=== PATIENT | male | born 1955 | race Caucasian/White ===

== ENCOUNTER → 2021-10-13 | Outpatient (CLI) | payer SELFPAY ==
--- NOTE | 2021-10-13 10:42 | ECHOD_ITS ---
Reason For Study: ABN EKG Procedure This was a 2D Doppler, Color Flow transthoracic echocardiogram. Exam performed in department. Left Ventricle Normal LV size. Left ventricular systolic function is normal. The estimated ejection fraction is 60 %. Normal diastology for age. No regional wall motion abnormalities noted. Right Ventricle Normal RV size. Normal systolic function. Atria Normal left atrium. Normal right atrium. Mitral Valve Normal mitral valve. Tricuspid Valve Normal tricuspid valve. Aortic Valve Normal aortic valve. Trisinus/trileaflet aortic valve. Pulmonic Valve Normal pulmonic valve. Great Vessels Normal aortic root. The pulmonary artery is normal size. Normal inferior vena cava. Pericardium/Pleural No pericardial effusion. MMode/2D Measurements & Calculations LVIDd: 4.8 cm IVSd: 0.97 cm LVOT diam: 2.0 cm LVIDs: 3.3 cm LVPWd: 1.0 cm LVOT area: 3.0 cm2 RVDd: 3.4 cm FS: 31.8 % Ao root diam: 2.4 cm LAV(MOD-bp): 58.7 ml LVAd ap4: 31.1 cm2 LAV(MOD-bp) Indexed: 27.7 ml/m2 LVLd ap4: 8.2 cm LAV(MOD-sp2): 63.4 ml EDV(MOD-sp4): 101.0 ml LAV(MOD-sp4): 54.6 ml EDV(sp4-el): 99.5 ml LVAs ap4: 17.5 cm2 LVLs ap4: 6.9 cm ESV(MOD-sp4): 40.3 ml ESV(sp4-el): 37.5 ml EF(MOD-sp4): 60.1 % EF(sp4-el): 62.3 % LVAd ap2: 33.8 cm2 SV(MOD-sp4): 60.7 ml SV(MOD-sp2): 68.8 ml LVLd ap2: 8.4 cm EDV(MOD-sp2): 112.9 ml EDV(sp2-el): 114.8 ml LVAs ap2: 18.9 cm2 LVLs ap2: 7.2 cm ESV(MOD-sp2): 44.1 ml ESV(sp2-el): 42.4 ml EF(MOD-sp2): 60.9 % SV(sp4-el): 62.0 ml LA dimension(2D): 4.1 cm LA A4 area: 19.6 cm2 RA A4 area: 14.7 cm2 Time Measurements MV dec time: 0.23 sec Doppler Measurements & Calculations MV E max seamus: 94.2 cm/sec Lat Peak E' Seamus: 15.1 cm/sec Med Peak E' Seamus: 9.3 cm/sec MV A max seamus: 58.8 cm/sec E/E' lat: 6.3 E/E' med: 10.2 MV E/A: 1.6 Ao V2 max: 194.8 cm/sec LV V1 max: 145.3 cm/sec MV dec slope: 408.6 cm/sec2 Ao max P.2 mmHg LV V1 max P.5 mmHg Ao V2 mean: 126.0 cm/sec LV V1 mean P.3 mmHg Ao mean P.6 mmHg LV V1 mean: 96.9 cm/sec Ao V2 VTI: 41.5 cm LV V1 VTI: 31.7 cm ENZO(I,D): 2.3 cm2 ENZO(V,D): 2.2 cm2 SV(LVOT): 95.0 ml PA V2 max: 168.1 cm/sec ECHO/Echo Complete Interpretation Summary Normal LV size. Left ventricular systolic function is normal. The estimated ejection fraction is 60 %. Normal diastology for age. Ordering Physician: Akil Escalante Referring Physician: Akil Escalante Performed By: Camryn Walls RDCS, RVT
== END | disposition home or self-care (01) ==
LOC: CVS 10:38
PROVIDERS: Referring Provider Family Medicine; Visit Provider Family Medicine
DX: R94.31 Abnormal electrocardiogram [ECG] [EKG] (principal)
CPT/HCPCS: 93306